=== PATIENT | female | born 1970 | race Caucasian/White ===

== ENCOUNTER 2020-09-07 19:53 | Emergency (ER) | payer MEDICARE ==
[2020-09-07 21:00] VITALS: RESP 18; TEMP 97.7
--- NOTE | 2020-09-07 23:04 | ED ---
Back Pain HPI - General Chief Complaint: Back Pain/Injury Stated Complaint: Back Pain Time Seen by Provider: 09/07/20 22:36 Source: patient Limitations: no limitations - History of Present Illness Initial Comments: 50-year-old female presents to the emergency department the chief complaint of back pain. Patient reports this started several days ago in the right flank region and has not radiated to the mid thoracic region since this morning. Patient reports it feels like a sharp pain radiating to the midsternal region of her chest. Patient reports she feels like there are spasms developing in the back and that appears to be exacerbating the pain in her chest. She denies any extremity weakness. She denies any abdominal pain nausea or vomiting. No previous history of back pain. No saddle anesthesia, urinary retention with overflow incontinence or bowel incontinence. - Related Data Allergies Allergy/AdvReac Type Severity Reaction Status Date / Time No Known Allergies Allergy Verified 09/07/20 20:57 Review of Systems ROS Statement: Those systems with pertinent positive or pertinent negative responses have been documented in the HPI. ROS Other: All systems not noted in ROS Statement are negative. Past Medical History Past Medical History: No Reported History History of Any Multi-Drug Resistant Organisms: None Reported Past Surgical History: Section, Cholecystectomy Past Psychological History: No Psychological Hx Reported Smoking Status: Never smoker Past Alcohol Use History: None Reported Past Drug Use History: None Reported General Exam Limitations: no limitations General appearance: alert, in no apparent distress Head exam: Present: atraumatic, normal inspection Eye exam: Present: normal appearance, PERRL, EOMI Pupils: Present: normal accommodation ENT exam: Present: normal exam, normal oropharynx, mucous membranes moist Neck exam: Present: normal inspection, full ROM. Absent: tenderness Respiratory exam: Present: normal lung sounds bilaterally. Absent: respiratory distress, wheezes, rales, rhonchi, stridor, chest wall tenderness, accessory muscle use Cardiovascular Exam: Present: regular rate, normal rhythm, normal heart sounds GI/Abdominal exam: Present: soft, normal bowel sounds. Absent: distended, tenderness, guarding, rebound Extremities exam: Present: normal inspection, full ROM, normal capillary refill, other (Palpable DP and PT bilaterally. Faint left radial pulse compared to right.). Absent: tenderness, pedal edema, joint swelling Back exam: Present: normal inspection, full ROM, tenderness, muscle spasm, vertebral tenderness (Midthoracic tenderness). Absent: CVA tenderness (R), CVA tenderness (L) Neurological exam: Present: alert, oriented X3 Psychiatric exam: Present: normal affect, normal mood Skin exam: Present: warm, dry, intact, normal color Course Vital Signs 09/07/20 09/08/20 20:58 00:11 Temperature 97.7 F Pulse Rate 94 84 Respiratory 18 18 Rate Blood Pressure 158/88 126/82 O2 Sat by Pulse 99 100 Oximetry Medical Decision Making - Medical Decision Making 50-year-old female presents to the emergency department with a chief complaint of back pain. She has no history of back pain. No concern for cauda equina at this time. On physical examination, this was a mid thoracic vertebral tenderness reproducible to palpation. However, she had radiation of the pain at her chest as well. She had a faint left radial pulse. Palpable DP and PT bilaterally. I had a concern for possible aortic dissection. I did obtain laboratory workup that was unremarkable. I also performed CT angiogram the chest abdomen pelvis which was unremarkable. Patient appears to have spasms of her first febrile spine. I did give her Valium, Toradol and a Lidoderm patch. We'll discharge with a Tylenol 3 starter pack and muscle relaxers. I advised her to follow-up with an orthopedic doctor. Strict return parameters were thoroughly discussed the patient was up standing and agreeable. Case discussed with - Lab Data Result diagrams: 09/07/20 23:16 09/07/20 23:16 Lab Results 09/07/20 09/07/20 09/07/20 Range/Units 23:16 23:16 23:16 WBC 9.2 (3.8-10.6) k/uL RBC 4.63 (3.80-5.40) m/uL Hgb 13.5 (11.4-16.0) gm/dL Hct 38.6 (34.0-46.0) % MCV 83.4 (80.0-100.0) fL MCH 29.1 (25.0-35.0) pg MCHC 34.9 (31.0-37.0) g/dL RDW 13.2 (11.5-15.5) % Plt Count 209 (150-450) k/uL MPV 7.9 Neutrophils % 66 % Lymphocytes % 24 % Monocytes % 6 % Eosinophils % 3 % Basophils % 0 % Neutrophils # 6.1 (1.3-7.7) k/uL Lymphocytes # 2.2 (1.0-4.8) k/uL Monocytes # 0.5 (0-1.0) k/uL Eosinophils # 0.3 (0-0.7) k/uL Basophils # 0.0 (0-0.2) k/uL Sodium 137 (137-145) mmol/L Potassium 4.1 (3.5-5.1) mmol/L Chloride 105 (98-107) mmol/L Carbon Dioxide 22 (22-30) mmol/L Anion Gap 10 mmol/L BUN 13 (7-17) mg/dL Creatinine 0.66 (0.52-1.04) mg/dL Est GFR (CKD-EPI)AfAm >90 (>60 ml/min/1.73 sqM) Est GFR (CKD-EPI)NonAf >90 (>60 ml/min/1.73 sqM) Glucose 106 H (74-99) mg/dL Calcium 9.5 (8.4-10.2) mg/dL Total Bilirubin 0.4 (0.2-1.3) mg/dL AST 23 (14-36) U/L ALT 17 (4-34) U/L Alkaline Phosphatase 79 (38-126) U/L Troponin I <0.012 (0.000-0.034) ng/mL Total Protein 7.6 (6.3-8.2) g/dL Albumin 4.7 (3.5-5.0) g/dL Lipase 82 (23-300) U/L Disposition Clinical Impression: Back pain, Back muscle spasm Disposition: HOME SELF-CARE Condition: Stable Instructions (If sedation given, give patient instructions): Muscle Spasm (ED) Additional Instructions: Follow-up with orthopedic assistant. Return to emergency department if sympt oms worsen. Is patient prescribed a controlled substance at d/c from ED?: No Referrals: None,Stated [Primary Care Provider] - 1-2 days Adam Clement DO [Doctor of Osteopathic Medicine] - 1-2 days Time of Disposition: 01:08
[2020-09-08 00:03] LABS: ALT 17 U/L (4-34); AST 23 U/L (14-36); African American GFR (CKD) >90 (>60 ml/min/1.73 sqM); Albumin 4.7 g/dL (3.5-5.0); Alkaline Phosphatase 79 U/L (38-126); Anion Gap 10 mmol/L; Blood Urea Nitrogen 13 mg/dL (7-17); Calcium 9.5 mg/dL (8.4-10.2); Carbon Dioxide 22 mmol/L (22-30); Chloride 105 mmol/L (98-107); Glucose 106 mg/dL (74-99); Lipase 82 U/L (23-300); Non-African American GFR(CKD) >90 (>60 ml/min/1.73 sqM); Potassium 4.1 mmol/L (3.5-5.1); Sodium 137 mmol/L (137-145); Total Bilirubin 0.4 mg/dL (0.2-1.3); Total Protein 7.6 g/dL (6.3-8.2)
[2020-09-08 00:12] VITALS: BP 126/82; PULSE 84
--- NOTE | 2020-09-08 00:22 | CT ---
EXAMINATION TYPE: CT angio thor/abd pel aorta DATE OF EXAM: 09/08/2020 COMPARISON: None HISTORY: pain CT DLP: 1429.4 mGycm Automated exposure control for dose reduction was used. CONTRAST: Performed with IV Contrast, patient injected with 100 mL of Isovue 370. Images obtained from the thoracic inlet to the floor the pelvis without and subsequently with IV cont rast Isovue 100 mL. There are 3-D post processed images. The lungs are clear of infiltrate. There is no evidence of a pulmonary mass. There is no pleural effu thania. Heart size is normal. There is no pericardial effusion. There is rounded 2 cm low-density left adrenal mass suggestive of benign disease. Liver spleen stomac h pancreas appear intact. Gallbladder appears absent. The bile ducts are not dilated. Kidneys have no rmal size. There is 2.5 cm cortical cyst lower pole left kidney. Kidneys show satisfactory contrast o pacification. There is no hydronephrosis. Ureters are not dilated. There is no retroperitoneal adenop athy. Bladder distends smoothly. Uterus is anteverted and is bulky and measures 11.7 x 6 cm. There is no inguinal hernia. There is no free fluid in the pelvis. Appendix is not seen. No sign of thickened appendix. The thoracic and lumbar vertebra show normal spacing and alignment. Posterior elements are intact. There is no compression fracture. The bony pelvis is intact. Hip joints appear normal. Thoracic aorta is intact. There is no evidence of filling defect in the pulmonary arteries. There is arterial flow in the celiac artery and superior mesenteric artery and both renal arteries. There is a rterial flow in the iliac and femoral arteries. There is no evidence of arterial stenosis. There is n o aneurysm or dissection. Abdominal aorta has normal size. There is no evidence of contrast extravasation. IMPRESSION: No evidence of pulmonary embolism. No evidence of arterial aneurysm or dissection. Normal aorta. 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
[2020-09-08 00:25] LABS: Basophils % (A) 0 %; Eosinophils # (A) 0.3 k/uL (0-0.7); Eosinophils % (A) 3 %; HCT 38.6 % (34.0-46.0); HGB 13.5 gm/dL (11.4-16.0); Lymphocytes # (A) 2.2 k/uL (1.0-4.8); Lymphocytes % (A) 24 %; MCH 29.1 pg (25.0-35.0); MCHC 34.9 g/dL (31.0-37.0); MCV 83.4 fL (80.0-100.0); Mean Platelet Volume 7.9; Monocytes # (A) 0.5 k/uL (0-1.0); Monocytes % (A) 6 %; Neutrophils # (A) 6.1 k/uL (1.3-7.7); Neutrophils % (A) 66 %; Platelet Count 209 k/uL (150-450); RBC 4.63 m/uL (3.80-5.40); RDW 13.2 % (11.5-15.5); WBC 9.2 k/uL (3.8-10.6)
[2020-09-08 00:36] LABS: Prothrombin Time 10.4 sec (9.0-12.0)
[2020-09-08] MEDS ORDERED: DIAZEPAM 5 MG/ML 2 ML INJ IVP STA (00:40)
[2020-09-08] MEDS ORDERED: KETOROLAC 15 MG/ML 1 ML VIAL IVP STA (00:40)
[2020-09-08] MEDS ORDERED: LIDOCAINE 5% PATCH TOPICAL STA (00:40)
[2020-09-08 01:05] LABS: Partial Thromboplastin Time 21.3 sec (22.0-30.0)
[2020-09-08] MEDS ORDERED: ACET/COD 300 MG/30 MG STARTER PACK 6 TAB BTL PO STA (01:09)
== END 2020-09-08 01:05 | disposition home or self-care (01) ==
LOC: EC 19:53
DX: M62.830 Muscle spasm of back (principal)
CPT/HCPCS: 36415; 93005; 80053; 83690; 84484; 85025; 85610; 85730; 71275; 74174; 99284; 96374; 96375; J3360; J1885; Q9967